=== PATIENT | male | born 1980 | race African-American/Black ===

== ENCOUNTER 2017-08-21 14:46 | Emergency (ER) | payer OTHER ==
[~2017-08-21] VITALS: Ht 172.7 cm; Wt 78.0 kg
[2017-08-21 14:48] VITALS: BP 123/59; PULSE 79; RESP 17; TEMP 98.4; O2SAT 98
--- NOTE | 2017-08-21 15:14 | PD ---
HPI Chief Complaint: Injury Time Seen by Provider: 15:07 Travel History International Travel<30 days: No Contact w/Intl Traveler<30days: No Traveled to known affect area: No History of Present Illness HPI 37-year-old Afro-[place] male presents to the emergency room with pain to the right wrist and hand status post injury while playing basketball 2 days ago. Patient states she has trouble making a fist secondary to pain, as well as difficulty bending the wrist with flexion and extension. He denies numbness or tingling. There is no open wounds. Denies any other injury. Patient states his pain is a 6 out of 10. He has no known drug allergies PFSH Social History Alcohol Use: Yes Tobacco Use: No Substance Use: No Allergies-Medications (Allergen,Severity, Reaction): Coded Allergies: No Known Allergies (Unverified , 08/21/17) Review of Systems Except as stated in HPI: all other systems reviewed are Neg General / Constitutional: No: Fever Eyes: No: Visual changes HENT: No: Headaches Cardiovascular: No: Chest Pain or Discomfort Respiratory: No: Shortness of Breath Gastrointestinal: No: Abdominal Pain Genitourinary: No: Dysuria Musculoskeletal: Positive: Arthralgias, Limited ROM, Pain (see history of present illness) Skin: No Rash Neurologic: No: Weakness Psychiatric: No: Depression Endocrine: No: Polydipsia Hematologic/Lymphatic: No: Easy Bruising Physical Exam Narrative GENERAL: Patient appears in no acute distress. SKIN: Warm and dry. Normal color. Normal turgor. No ecchymosis. No abrasions. No significant swelling. HEAD: Atraumatic. Normocephalic. EYES: Pupils equal and round. No scleral icterus. No injection or drainage. ENT: No nasal bleeding or discharge. Mucous membranes pink and moist. Pharynx is clear. Airway is patent. NECK: Trachea midline. Supple nontender. CARDIOVASCULAR: Regular rate and rhythm. No murmurs gallops or rubs. RESPIRATORY: No accessory muscle use. Clear to auscultation. Breath sounds equal bilaterally. MUSCULOSKELETAL: Extremities without clubbing, cyanosis, or edema. Patient is tenderness at the right wrist which is nonspecific. It is worse with extension and flexion of the right wrist. There is no obvious deformity or significant swelling noted. Neurovascular exam is unremarkable. 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 The rest of his exam is unremarkable. NEUROLOGICAL: Awake and alert. No obvious cranial nerve deficits. Motor grossly within normal limits. Five out of 5 muscle strength in the arms and legs. Normal speech. PSYCHIATRIC: Appropriate mood and affect; insight and judgment normal. Data Data Last Documented VS Vital Signs Date Time Temp Pulse Resp B/P (MAP) Pulse Ox O2 Delivery O2 Flow Rate FiO2 08/21/17 14:48 98.4 79 17 123/59 (80) 98 Orders Orders Hand, Complete ([id number]) (08/21/17 15:14) Wrist, Complete ([id number]) (08/21/17 15:14) Splinting (08/21/17 ) MDM Medical Decision Making Medical Screen Exam Complete: Yes Emergency Medical Condition: Yes Differential Diagnosis Right wrist sprain. Right hand sprain. Possible fracture. Narrative Course X-rays of the right hand and wrist are obtained. X-rays of the right hand and wrist are both read as negative by the radiologist. I tried to explain to the patient that he did not have a fracture but the patient is not convinced, and is convinced that he has a fracture in his palm. I offered the patient a splint and ibuprofen but the patient refused. Patient is given copies of his x-rays and discharged home. Diagnosis Primary Impression: Contusion of right hand, initial encounter Referrals: Primary Care Physician Patient Instructions: Contusion in Adults (ED), General Instructions, Hand Sprain (ED), Wrist Injury (ED) Additional Instructions: X-rays of the right hand and wrist are both read as negative by the radiologist. I tried to explain to the patient that he did not have a fracture but the patient is not convinced, and is convinced that he has a fracture in his palm. I offered the patient a splint and ibuprofen but the patient refused. Patient is given copies of his x-rays and discharged home. Med/Other Pt SpecificInfo: No Meds Exist/No RX given Disposition: 01 DISCHARGE HOME Condition: Stable Scott Monge Aug 21, 2017 15:14
--- NOTE | 2017-08-21 16:14 | RADRPT ---
EXAM DATE/TIME: 08/21/2017 15:54 [facility] COMPARISON: No previous studies available for comparison. INDICATIONS : Pain from fall on outstretched hand. MEDICAL HISTORY : None. SURGICAL HISTORY : None. ENCOUNTER: Initial ACUITY: 1 day PAIN SCORE: 4/10 LOCATION: Right medial palmar surface. FINDINGS: Three view examination of the right hand demonstrates no soft tissue swelling, dislocation, or fractu re. The carpal bones appear intact. The interphalangeal and metacarpophalangeal joints are intact. Bony mineralization is normal. CONCLUSION: Unremarkable examination of the right hand. Freddy Souza MD on August 21, 2017 at 16:11 Board Certified Radiologist. This report was verified electronically.
--- NOTE | 2017-08-21 16:15 | RADRPT ---
EXAM DATE/TIME: 08/21/2017 15:54 [facility] COMPARISON: No previous studies available for comparison. INDICATIONS : Pain from fall on outstretched hand. MEDICAL HISTORY : None. SURGICAL HISTORY : None. ENCOUNTER: Initial ACUITY: 1 day PAIN SCORE: 4/10 LOCATION: Right medial palmar surface. FINDINGS: Three view examination of the right wrist demonstrates no soft tissue swelling, dislocation, or fract ure. The carpal bones are in normal alignment. The joint spaces are maintained. Bony mineralizatio n is normal. CONCLUSION: Unremarkable examination of the right wrist. Freddy Souza MD on August 21, 2017 at 16:13 Board Certified Radiologist. This report was verified electronically.
== END 2017-08-21 16:49 | disposition home or self-care (01) ==
LOC: NEPK 14:46
DX: S60.221A Contusion of right hand, initial encounter (principal); Y93.67 Activity, basketball
CPT/HCPCS: 73110; 73130; 99283